=== PATIENT | female | born 1990 | race Two or more races ===

== ENCOUNTER 2020-11-23 20:54 | Emergency (ER) | payer OTHER ==
[~2020-11-23] VITALS: Ht 149.9 cm; Wt 68.2 kg
[2020-11-24 00:09] VITALS: BP 104/57
--- NOTE | 2020-11-24 00:16 | RAD ---
Left ankle x-rays 3 views HISTORY: Pain. FINDINGS: Lateral ankle soft tissue edema and swelling. No fracture. No dislocation. No talus osteoch ondral lesion. IMPRESSION: No acute osseous injury. Lateral ankle soft tissue swelling. Electronically signed by: Randolph Baron MD (11/24/2020 12:13 AM) [facility]
--- NOTE | 2020-11-24 00:23 | PHYS DOC ---
Past Medical History Past Medical History: No Pertinent History Smoking Status: Never Smoker Alcohol Use: None General Adult EDM: Chief Complaint: ANKLE PROBLEM HPI: HPI: Patient is a 30 year old female who presents with left ankle pain s/p fall earlier today. Reports falling down ~4 steps and believes she rolled her ankle. Unable to bear weight secondary to pain. Also reports associated numbness, swelling, and bruising. Denies any head injury/trauma. No LOC. Review of Systems: Review of Systems: Constitutional: Denies fever or chills Eyes: Denies redness or eye pain HENT: Denies nasal congestion or sore throat Respiratory: Denies cough or shortness of breath Cardiovascular: Denies chest pain or palpitations GI: Denies abdominal pain, nausea, or vomiting : Denies dysuria or hematuria Musculoskeletal: Reports left ankle pain and swelling. Denies back pain Integument: Reports left ankle bruising. Denies rash or skin lesions Neurologic: Denies headache, focal weakness or sensory changes Complete systems were reviewed and found to be within normal limits, except as documented in this note. Heart Score: C/O Chest Pain: N/A Physical Exam: PE: Constitutional: Well developed, well nourished, no acute distress, non-toxic appearance HENT: Normocephalic, atraumatic Eyes: PERRL, EOMI, conjunctiva normal, no discharge Neck: Normal range of motion, no tenderness, supple Lungs & Thorax: No respiratory distress, equal chest rise and fall Abdomen: Soft, no tenderness Skin: Warm, dry, no erythema, no rash Back: No tenderness, no CVA tenderness Extremities: Left ankle swollen and bruised. Lateral malleolus tender to palpation. Passive and active ROM limited secondary to pain. 2+ distal pulses bilaterally. Remaining extremities nontender with full ROM. Neurologic: Alert and oriented X 3, normal motor function, normal sensory function, no focal deficits noted Psychologic: Affect normal, judgment normal Radiology/Procedures: Radiology/Procedures: Left ankle x-rays 3 views HISTORY: Pain. FINDINGS: Lateral ankle soft tissue edema and swelling. No fracture. No dislocation. No talus osteochondral lesion. IMPRESSION: No acute osseous injury. Lateral ankle soft tissue swelling. Electronically signed by: Randolph Baron MD (11/24/2020 12:13 AM) [id number] Course & Med Decision Making: Course & Med Decision Making 30 year old female presents with left ankle pain s/p fall. Imaging negative for any acute fracture. Administered ibuprofen for pain. Patient stable for discharge with outpatient follow-up with PCP. Discussed findings and plan with patient, who acknowledges understanding and agreement. Renee Disclaimer: Renee Disclaimer: This electronic medical record was generated, in whole or in part, using a voice recognition dictation system. Splinting Splinting : Location: Left ankle Pre-Made Type: J CARLOS bandage Pre-Proc Neuro Vasc Exam: normal Post-Proc Neuro Vasc Exam: normal, unchanged from pre-exam Departure Departure Impression: Primary Impression: Left ankle sprain Qualified Codes: S93.402A - Sprain of unspecified ligament of left ankle, initial encounter Disposition: HOME / SELF CARE / HOMELESS Condition: STABLE Referrals: NO PCP (PCP) MARTHA LOVE MD Patient Instructions: Ankle Sprain, [id number], Crutch Use, [id number] Additional Instructions: Use over the counter Tylenol as needed for pain or discomfort. ICE area of discomfort 20 min on then leave off next 20 mins. Repeat several times daily as needed for next few days. MARLI DUMONT DO Nov 24, 2020 00:23
[2020-11-24] MEDS ORDERED: IBUPROFEN 400 MG TABLET. PO ONE (00:30)
[2020-11-24] MEDS ORDERED: ACETAMINOPHEN 500 MG TABLET PO ONE (00:45)
== END 2020-11-24 00:45 | disposition home or self-care (01) ==
LOC: ER 20:54
DX: S93.402A Sprain of unspecified ligament of left ankle, initial encounter (principal); W10.8XXA Fall (on) (from) other stairs and steps, initial encounter; Y93.89 Activity, other specified; Y92.89 Other specified places as the place of occurrence of the external cause; Y99.8 Other external cause status
CPT/HCPCS: 73610; 99283